=== PATIENT | male | born 1990 | race Caucasian/White ===

== ENCOUNTER 2023-01-24 14:07 | Emergency (ER) | payer OTHER ==
[~2023-01-24] VITALS: Ht 177.8 cm; Wt 64.0 kg
[2023-01-24 14:27] VITALS: BP 109/74
[2023-01-24] MEDS ORDERED: TETRACAINE 0.5% OPHTH DROPS 4ML BOTHEYE ONE (15:45)
[2023-01-24] MEDS ORDERED: FLUORESCEIN SODIUM 1MG/STRIP BOTHEYE ONE (15:45)
== END 2023-01-24 17:01 | disposition home or self-care (01) ==
LOC: ER 14:07
DX: Z00.00 Encounter for general adult medical examination without abnormal findings (principal)
CPT/HCPCS: 99283

== ENCOUNTER 2023-04-13 00:45 | Emergency (ER) | payer OTHER ==
[~2023-04-13] VITALS: Ht 177.8 cm; Wt 68.0 kg
[~2023-04-13 00:45] MED LIST: OLAN10TA3 MT
[2023-04-13 00:48] VITALS: BP 140/80; PULSE 80; RESP 16; TEMP 98.1; O2SAT 100
== END 2023-04-13 04:48 | disposition left against medical advice (07) ==
LOC: ER 00:45
DX: Z53.21 Procedure and treatment not carried out due to patient leaving prior to being seen by health care provider (principal)
CPT/HCPCS: 99281

== ENCOUNTER 2023-05-06 19:08 | Emergency (ER) | payer OTHER ==
[~2023-05-06] VITALS: Ht 177.8 cm; Wt 69.0 kg
[2023-05-06 19:34] VITALS: BP 122/77; PULSE 111; RESP 18; TEMP 98.2; O2SAT 100
[2023-05-06] MEDS ORDERED: TOPUD MT (21:39)
[2023-05-06] MEDS ORDERED: CLIN-194 MT (21:39)
[2023-05-06] MEDS ORDERED: IBUP-2029 MT (21:39)
== END 2023-05-06 21:52 | disposition home or self-care (01) ==
LOC: ER 19:08
DX: K02.9 Dental caries, unspecified (principal)
CPT/HCPCS: 99281